=== PATIENT | female | born 1985 | race Caucasian/White ===

== ENCOUNTER 2017-02-03 08:00 | Outpatient (CLI) | payer OTHER | END 2017-02-03 23:59 | DX: Z11.3 Encounter for screening for infections with a predominantly sexual mode of transmission (principal) ==

== ENCOUNTER 2017-03-14 09:35 | Emergency (ER) | payer OTHER ==
[2017-03-14 09:47] VITALS: BP 103/67
--- NOTE | 2017-03-14 12:11 | ED Physician Documentation ---
PD HPI HEENT - Stated complaint Stated Complaint: SINUS PRESSURE/18 WKS PREG - Chief complaint Chief Complaint: Heent - History obtained from History obtained from: Patient - History of Present Illness Timing - onset: Other (She has had nasal congestion for about 2 days but severe left ear pain more than right ear pain since last night. Some chills but no measured fevers. She is 18 weeks . She also has mild vertigo. No vomiting. No significant cough. Her children were recently sick with URI and fever.) Review of Systems Constitutional: reports: Chills. denies: Fever Ears: reports: Ear pain Nose: reports: Rhinorrhea / runny nose, Congestion, Sinus pressure / pain Throat: reports: Sore throat Respiratory: denies: Dyspnea, Cough GI: denies: Abdominal Pain PD PAST MEDICAL HISTORY - Past Medical History Past Medical History: No - Past Surgical History Past Surgical History: Yes HEENT: Tonsil/Adenoidectomy - Present Medications Home Medications: Ambulatory Orders Medication Instructions Recorded Confirmed Amoxicillin 500 mg PO TID #30 capsule 03/14/17 Pnv95/Ferrous Fumarate/FA 1 tab PO DAILY 03/14/17 03/14/17 [ Tablet] - Allergies Allergies/Adverse Reactions: Allergies Allergy/AdvReac Type Severity Reaction Status Date / Time acetaminophen [From [facility]] Allergy Rash Verified 03/14/17 09:46 hydrocodone bitartrate * Allergy Rash Verified 03/14/17 09:46 [From [facility]] - Social History Does the pt smoke?: No Smoking Status: Never smoker Does the pt drink ETOH?: No Does the pt have substance abuse?: No - Immunizations Immunizations are current?: Yes PD ED PE NORMAL - Vitals Vital signs reviewed: Yes - General General: Alert and oriented X 3, No acute distress - HEENT HEENT: Other (Severe left otitis media, mild right otitis media, oropharynx normal, status post tonsillectomy.) - Neck Neck: Supple, no meningeal sign, No bony TTP - Cardiac Cardiac: RRR, No murmur - Respiratory Respiratory: No respiratory distress, Clear bilaterally - Abdomen Abdomen: Non tender - Derm Derm: No rash - Neuro Neuro: Alert and oriented X 3, Normal speech - Psych Psych: Normal mood, Normal affect Results - Vitals Vitals: Vital Signs - 24 hr 03/14/17 09:43 Temperature 36.1 C L Heart Rate 94 Respiratory 20 Rate Blood Pressure 103/67 O2 Saturation 99 Oxygen O2 Source Room air Departure - Departure Disposition: 01 Home, Self Care Clinical Impression: Bilateral acute otitis media Condition: Good Record reviewed to determine appropriate education?: Yes Instructions: ED Otitis Media Acute Adult Prescriptions: Amoxicillin 500 mg PO TID #30 capsule Comments: Recheck with your physician in one week. Take [id number] Mucinex and Sudafed as per package instructions as discussed. Drink plenty of fluids. Return if worse.
== END 2017-03-14 12:14 | disposition home or self-care (01) ==
LOC: ED 09:35
DX: O26.892 Other specified pregnancy related conditions, second trimester (principal); H66.93 Otitis media, unspecified, bilateral; Z3A.18 18 weeks gestation of pregnancy
CPT/HCPCS: 99283

== ENCOUNTER 2017-04-07 12:29 | Outpatient (CLI) | payer OTHER ==
--- NOTE | 2017-04-08 12:08 | Ultrasound Report ---
OB ULTRASOUND: 04/07/2017 CLINICAL INDICATION: anatomy. TECHNIQUE: Real-time scanning was performed with traveling sales representative static images obtained. LAST MENSTRUAL PERIOD --- Clinical Age --- US Age 21 weeks 2 days EFW Hadlock 424 g EFW% Hadlock --- Heart Rate 137 bpm EDC --- US EDC 08/16/2017 BPD Hadlock 21 weeks 0 days; Mean mm 49.6 HC [place]lock 21 weeks 1 day; Mean mm 188.4 AC [place]lock 21 weeks 2 days; Mean mm 162.1 FL Hadlock 21 weeks 5 days; Mean mm 36.9 Presentation moving Placental Location anterior Cervical Length 3.9 cm Amniotic Fluid 14.6 cm FINDINGS: There is a single viable intrauterine gestation, in variable position. heart rate is 137 BPM. The placenta is anterior, without evidence of previa. Amniotic fluid volume is normal, with an HARISH of 14.6. By size, the fetus measures 21.3 weeks (uncertain LMP). The following anatomic structures were visualized and appear normal: The intracranial contents, including the ventricles and posterior fossa; the lips and orbits; the spine; the heart, including 4 chamber view and outflow tracts, and diaphragm; the abdominal contents, including the stomach, the bilateral kidneys, and urinary bladder, as well as a normal 3 vessel cord insertion; 4 limbs. No free fluid or adnexal lesion is appreciated. IMPRESSION: SINGLE VIABLE INTRAUTERINE GESTATION, MEASURING 21.3 WEEKS BY SIZE. NORMAL ANATOMIC SURVEY. [facility]
== END 2017-04-07 12:30 | disposition home or self-care (01) ==
LOC: DI 12:29
PROVIDERS: ATTEND Obstetrics & Gynecology
DX: Z36 Encounter for antenatal screening of mother (principal)
CPT/HCPCS: 76811

== ENCOUNTER 2017-05-12 09:33 | Outpatient (CLI) | payer OTHER ==
[2017-05-12 13:16] LABS: HGB - HEMOGLOBIN 10.7 g/dL (12.0-16.0); MEAN CORPUSCULAR HGB CONC 33.6 g/dL (32.0-36.0); MEAN CORPUSCULAR VOLUME 95.2 fL (81.0-99.0); MEAN PLATELET VOLUME 8.3 fL (7.9-10.8); RED BLOOD COUNT 3.36 10^6/uL (4.20-5.40); RED CELL DISTRIBUTION WIDTH 13.7 % (12.0-15.0); WHITE BLOOD COUNT 8.5 x10^3/uL (4.8-10.8)
== END 2017-05-12 09:34 | disposition home or self-care (01) ==
LOC: LAB.WCP 09:33
PROVIDERS: ATTEND Obstetrics & Gynecology
DX: Z36 Encounter for antenatal screening of mother (principal)
CPT/HCPCS: 36415; 82950; 86850